=== PATIENT | female | born 1950 | race Caucasian/White ===

== ENCOUNTER 2020-06-29 16:48 | Inpatient (IN) | payer OTHER, BC ==
[2020-06-29 17:33] LABS: Absolute Lymphocytes (CBC) 0.8 K/uL (0.7-4.9); Basophils % 0.3 % (0-1.3); Hematocrit 45.9 % (36.0-45.0); Lymphocytes % 3.8 % (15.3-44.8); MPV 7.4 fL (7.6-11.3); RBC Red Blood Cell Count 5.09 M/uL (3.86-4.86)
[2020-06-29 17:37] LABS: Protime INR 1.37
[2020-06-29] MEDS ORDERED: dexAMETHasone 4 MG/ML VIAL ONE (17:44)
[2020-06-29] MEDS ORDERED: NA CHLORIDE 0.9% 500 ML ONE (17:44)
[2020-06-29 17:49] LABS: ALT/SGPT 69 U/L (12-78); AST/SGOT 55 U/L (15-37); Albumin 3.1 g/dL (3.4-5.0); Alkaline Phosphatase 142 U/L (45-117); BUN Blood Urea Nitrogen 24 mg/dL (7-18); Bicarbonate 23 mmol/L (21-32); Bilirubin Direct 0.4 mg/dL (0-0.2); Bilirubin Total 0.8 mg/dL (0.2-1.0); Glucose Level 126 mg/dL (74-106); Lipase 201 U/L (73-393); Potassium 3.6 mmol/L (3.5-5.1); Protein, Total 8.1 g/dL (6.4-8.2); Sodium Level 136 mmol/L (136-145); Troponin (Emerg Dept Use Only) < 0.02 ng/mL (0.0-0.045)
[2020-06-29 18:10] LABS: Blood Morphology Comment NOT SEEN (NOT SEEN); Platelet Estimate ADEQ
--- NOTE | 2020-06-29 18:22 | RAD REPORT ---
EXAM DESCRIPTION: RAD - Chest Single View - 06/29/2020 5:55 pm CLINICAL HISTORY: Chest pain;SOB Chest pain. COMPARISON: CHEST SINGLE VIEW dated 10/27/2010; CHEST SINGLE VIEW dated 01/30/2009; CHEST PA AND LAT 2 VIEW dated 01/26/2009; CHEST PA AND LAT 2 VIEW dated 10/11/2005 FINDINGS: Portable technique limits examination quality. Mild linear opacities in left lung base suspicious for developing pneumonia. The heart is normal in s ize. No displaced fractures.
[2020-06-29] MEDS ORDERED: Levofloxacin 750mg IV 750 MG/150 ML BAG IV ONE (18:25)
--- NOTE | 2020-06-29 19:35 | EDPHYS ---
Physician Documentation [facility] Name: Sakshi Turcios Age: 69 yrs Sex: Female : 1950 Arrival Date: 06/29/2020 Time: 16:50 Bed 8 Private MD: ED Physician Crow Washington HPI: 06/29 17:10 This 69 yrs old Female presents to ER via Wheelchair with complaints of cp Breathing Difficulty. 17:10 The patient has shortness of breath at rest. Onset: The symptoms/episode began/occurred cp yesterday, and became worse today. Duration: The symptoms are continuous, and are steadily getting worse. The patient's shortness of breath is aggravated by light activity. 17:10 Associated signs and symptoms: Pertinent positives: chest pain, non-productive cough, cp fever, fatigue. 17:10 Severity of symptoms: in the emergency department the symptoms are unchanged despite cp home interventions. Patient reports being diagnosed with COVID-19 2 weeks ago. Historical: - Allergies: 17:08 No Known Allergies; ca1 - PMHx: 17:08 Hypertension; Arthritis; ca1 - Immunization history:: Adult Immunizations up to date. - Social history:: Smoking status: Patient denies any tobacco usage or history of. ROS: 17:12 Constitutional: Positive for fatigue, Negative for fever, poor PO intake. cp 17:12 Eyes: Negative for injury, pain, redness, and discharge. cp 17:12 ENT: Negative for ear pain, difficulty swallowing, difficulty handling secretions. 17:12 Cardiovascular: Positive for chest pain, Negative for edema, palpitations. 17:12 Respiratory: Positive for cough, "sounds productive", shortness of breath, at rest. 17:12 Abdomen/GI: Negative for abdominal pain, vomiting, diarrhea, constipation. 17:12 Neuro: Negative for altered mental status, headache, syncope. 17:12 All other systems are negative. Exam: 17:12 ECG was reviewed by the Attending Physician. cp 17:15 Head/Face: Normocephalic, atraumatic. cp 17:15 Constitutional: The patient appears alert, awake, non-diaphoretic, non-toxic, well developed, well nourished, in obvious distress, mildly distressed, obviously ill, uncomfortable. 17:15 Eyes: Periorbital structures: appear normal, Conjunctiva: normal, no exudate, no injection, Lids and lashes: appear normal, bilaterally. 17:15 ENT: External ear(s): are unremarkable, Nose: is normal, Posterior pharynx: Airway: no evidence of obstruction, patent. 17:15 Neck: ROM/movement: is normal, is supple, no meningismus, no nuchal rigidity. 17:15 Chest/axilla: Inspection: normal, Palpation: is normal, no crepitus, no tenderness. 17:15 Cardiovascular: Rate: tachycardic, Rhythm: regular. 17:15 Respiratory: mild respiratory distress is noted, Respirations: labored breathing, that is mild, shallow respirations, that is mild, Breath sounds: bronchial sounds, that are moderate, are heard diffusely, stridor, is not appreciated. 17:15 Abdomen/GI: Inspection: abdomen appears normal, Palpation: abdomen is soft and non-tender, in all quadrants. 17:15 Back: pain, is absent, ROM is normal. 17:15 Neuro: Orientation: to person, place \\T\\ time. Mentation: is normal, Cerebellar function: is grossly normal, Motor: moves all fours, strength is normal. 17:15 Skin: no rash present. cp Vital Signs: 17:00 BP 161 / 97; Pulse 126; Resp 22; Temp 97.3(TE); Pulse Ox 89% on R/A; Weight 69.4 kg ca1 (R); Height 5 ft. 1 in. (154.94 cm) (R); Pain 9/10; 18:02 BP 137 / 65; Pulse 101; Resp 18; Pulse Ox 95% on 4 lpm NC; bp 19:30 BP 121 / 62; Pulse 105; Resp 19; Pulse Ox 99% on 4 lpm NC; rr5 20:30 BP 131 / 62; Pulse 96; Resp 17; Pulse Ox 98% on 4 lpm NC; rr5 21:45 BP 127 / 68; Pulse 99; Resp 18; Temp 98.5; Pulse Ox 95% 4 lpm ; rr5 17:00 Body Mass Index 28.91 (69.40 kg, 154.94 cm) ca1 MDM: 17:01 Patient medically screened. cp 17:30 Differential diagnosis: CHF exacerbation, Chronic Obstructive Pulmonary Disease cp Myocardial Infarction pneumonia, pulmonary edema, Pulmonary Embolism Unstable Angina. 18:45 Data reviewed: vital signs, nurses notes, lab test result(s), EKG, radiologic studies, cp plain films. 18:45 Test interpretation: by ED physician or midlevel provider: ECG. Physician consultation: elissa Alexander MD was called at 18:45, left message on voicemail. 19:07 Physician consultation: Lazarus Alexander MD was called at 19:07, no answer, left message on cp voicemail. 19:45 Physician consultation: Lazarus Alexander MD was called at 19:45, was contacted at 19:45, cp regarding admission, to the telemetry unit. patient's condition, would like consultation with Dr. Castaneda. 19:56 Physician consultation: Brandon Castaneda MD was contacted at 19:57, regarding consult, cp patient's condition, and will see patient in inpatient room, tomorrow, does not want steroids to be continued. Continue Levaquin IV. 20:00 Counseling: I had a detailed discussion with the patient and/or guardian regarding: the cp historical points, exam findings, and any diagnostic results supporting the discharge/admit diagnosis, lab results, radiology results, the need for further work-up and treatment in the hospital. 06/29 17:06 Order name: Basic Metabolic Panel; Complete Time: 18:01 06/29 17:06 Order name: Blood Culture Adult (2) 06/29 17:06 Order name: CBC with Diff; Complete Time: 18:26 06/29 17:41 Interpretation: Normal except: WBC 22.1; RBC 5.09; HGB 15.1; HCT 45.9; MPV 7.4; CORNELIUS% cp 92.9; LYM% 3.8; MN% 2.9; NEUT A 20.6. 06/29 17: Order name: Lactate; Complete Time: 18:01 cp 06/29 17:06 Order name: LFT's; Complete Time: 18:01 cp 06/29 17:06 Order name: Lipase; Complete Time: 18:01 06/29 17:06 Order name: Procalcitonin; Complete Time: 18:26 cp 06/29 17:06 Order name: Protime (+inr); Complete Time: 17:40 06/29 17:41 Interpretation: Abnormal: PT 16.1. 06/29 17:06 Order name: Ptt, Activated; Complete Time: 17:40 cp 06/29 17:06 Order name: Troponin (emerg Dept Use Only); Complete Time: 18:01 cp 06/29 17:06 Order name: Urine Microscopic Only; Complete Time: 19:55 cp 06/29 17:22 Order name: CRP; Complete Time: 18:26 cp 06/29 17:22 Order name: D-Dimer; Complete Time: 18:01 06/29 18:11 Order name: Manual Differential; Complete Time: 18:26 EDMS 06/29 17:06 Order name: Chest Single View XRAY; Complete Time: 18:32 cp 06/29 18:32 Interpretation: Report reviewed. 06/29 19:31 Order name: Urine Dipstick--Ancillary (enter results) [facility] 06/29 20:05 Order name: SARS-COV-2 RT PCR EDHI 06/29 20:15 Order name: Influenza Screen (a \\T\\ B) 06/29 20:16 Order name: Basic Metabolic Panel ED[facility] 06/29 20:16 Order name: Basic Metabolic Panel ED[facility] 06/29 20:16 Order name: CBC with Automated Diff EDMS 06/29 20:16 Order name: CBC with Automated Diff EDMS 06/29 20:16 Order name: NT PRO-BNP ED[facility] 06/29 20:16 Order name: NT PRO-BNP [facility] 06/29 20:16 Order name: Troponin I ED[facility] 06/29 20:16 Order name: Troponin I EDHI 06/29 20:16 Order name: Troponin I EDHI 06/29 17:06 Order name: Cardiac monitoring; Complete Time: 17:13 06/29 17:06 Order name: EKG - Nurse/Tech; Complete Time: 17:13 06/29 17:06 Order name: IV Saline Lock - Large Bore; Complete Time: 17:13 06/29 17:06 Order name: Labs collected and sent; Complete Time: 17:13 cp 06/29 17:06 Order name: O2 Per Protocol; Complete Time: 17:13 06/29 17:06 Order name: O2 Sat Monitoring; Complete Time: 17:13 cp 06/29 17:06 Order name: Urine Dipstick-Ancillary (obtain specimen); Complete Time: 17:13 06/29 17:13 Order name: Urine Dipstick-Ancillary (obtain specimen); Complete Time: 19:39 bp 06/29 20:16 Order name: Regular EDMS EC:12 Rate is 122 beats/min. Rhythm is regular. MN interval is normal. QRS interval is cp normal. QT interval is normal. Interpreted by me. Reviewed by me. Administered Medications: 17:20 Drug: Decadron - Dexamethasone 6 mg Route: IVP; Site: right forearm; bp 18:03 Follow up: Response: No adverse reaction bp 17:20 Drug: NS 0.9% 500 ml Route: IV; Rate: bolus; Site: right forearm; bp 18:03 Follow up: IV Status: Completed infusion; IV Intake: 500ml bp 18:10 Drug: LevaQUIN 750 mg Volume: 150 ml; Route: IVPB; Infused Over: 90 mins; Site: right bp forearm; 22:06 Follow up: IV Status: Completed infusion; IV Intake: 150ml rr5 Disposition: 06/30 07:15 Co-signature as Attending Physician, Crow Washington MD. rn Disposition: 06/29/20 19:34 Hospitalization ordered by Lazarus Alexander for Inpatient Admission. Preliminary diagnosis are Pneumonia due to other specified infectious organisms, Coronavirus infection, unspecified, Hypoxemia. - Bed requested for Intensive Care Unit. - Status is Inpatient Admission. rr5 - Condition is Stable. - Problem is new. - Symptoms have improved. Signatures: Dispatcher [employer] EDMS Cecilia Fry RN RN kl Nieto, Roman, MD MD rn Page, Corey, PA PA cp Torin Colon RN RN bp Stew Jordan RN RN rr5 Holly Ashley RN RN ca1 Corrections: (The following items were deleted from the chart) 06/29 17:41 17:41 Normal except: WBC 22.1; RBC 5.09; HGB 15.1; HCT 45.9; MPV 7.4; CORNELIUS% 92.9; LYM% cp 3.8; MN% 2.9. cp 19:35 19:34 Hospitalization Ordered by Lazarus Alexander MD for Inpatient Admission. Preliminary cp diagnosis is Pneumonia due to other specified infectious organisms; Coronavirus infection, unspecified. Bed requested for Telemetry/MedSurg (Inpatient). Status is Inpatient Admission. Condition is Stable. Problem is new. Symptoms have improved. cp 20:57 19:35 06/29/2020 19:34 Hospitalization Ordered by Lazarus Alexander MD for Inpatient kl Admission. Preliminary diagnosis is Pneumonia due to other specified infectious organisms; Coronavirus infection, unspecified; Hypoxemia. Bed requested for Telemetry/MedSurg (Inpatient). Status is Inpatient Admission. Condition is Stable. Problem is new. Symptoms have improved. cp 22:06 20:57 06/29/2020 19:34 Hospitalization Ordered by Lazarus Alexander MD for Inpatient rr5 Admission. Preliminary diagnosis is Pneumonia due to other specified infectious organisms; Coronavirus infection, unspecified; Hypoxemia. Bed requested for Intensive Care Unit. Status is Inpatient Admission. Condition is Stable. Problem is new. Symptoms have improved. kl
--- NOTE | 2020-06-29 19:35 | ER ---
Nurse's Notes [facility] Name: Sakshi Turcios Age: 69 yrs Sex: Female : 1950 Arrival Date: 06/29/2020 Time: 16:50 Bed 8 Private MD: Diagnosis: Pneumonia due to other specified infectious organisms;Coronavirus infection, unspecified;Hypoxemia Presentation: 06/29 17:00 Chief complaint: Patient states: COVID positive 2 weeks ago, out of quarantine 3 days ca1 ago. Started having cough and SOB since last night. Reports low grade fever, fatigue, nausea, chest pain. Coronavirus screen: Client denies travel out of the [place] in the last 14 days. cough unrelated to allergies, fatigue, fever, nausea, shortness of breath, Client presents with at least one sign or symptom that may indicate coronavirus-19. Standard/surgical mask placed on the client. Provider contacted for isolation considerations. Client reports previous positive COVID test result. Date of collection: May 2020. Ebola Screen: Patient negative for fever greater than or equal to 101.5 degrees Fahrenheit, and additional compatible Ebola Virus Disease symptoms Patient denies exposure to infectious person. Patient denies travel to an Ebola-affected area in the 21 days before illness onset. No symptoms or risks identified at this time. Initial Sepsis Screen: Does the patient meet any 2 criteria? RR > 20 per min. HR > 90 bpm. Yes Does the patient have a suspected source of infection? Yes: Productive cough/pneumonia. Risk Assessment: Do you want to hurt yourself or someone else? Patient reports no desire to harm self or others. Onset of symptoms was June 29, 2020. 17:00 Method Of Arrival: Wheelchair ca1 17:00 Acuity: OLIVIER 2 ca1 Triage Assessment: 17:00 General: Appears distressed, uncomfortable, ill, Behavior is cooperative, appropriate bp for age, anxious. Pain: Denies pain. EENT: No deficits noted. Neuro: Level of Consciousness is awake, alert, obeys commands, Oriented to person, place, time, situation, Appropriate for age. Cardiovascular: Rhythm is sinus tachycardia. Respiratory: Reports shortness of breath Breath sounds are coarse bilaterally. Onset: The symptoms/episode began/occurred yesterday, the patient has moderate shortness of breath. GI: No signs and/or symptoms were reported involving the gastrointestinal system. : No signs and/or symptoms were reported regarding the genitourinary system. Derm: No deficits noted. Musculoskeletal: No deficits noted. Historical: - Allergies: 17:08 No Known Allergies; ca1 - PMHx: 17:08 Hypertension; Arthritis; ca1 - Immunization history:: Adult Immunizations up to date. - Social history:: Smoking status: Patient denies any tobacco usage or history of. Screenin:00 Abuse screen: Denies threats or abuse. Denies injuries from another. Nutritional bp screening: No deficits noted. Tuberculosis screening: No symptoms or risk factors identified. Fall Risk None identified. Assessment: 16:57 Reassessment: CODE SEPSIS CALLED. bp 17:00 General: SEE TRIAGE NOTE. bp 18:03 Reassessment: ABX INFUSING. PT STATES SOME S/S IMPROVEMENT. Cardiovascular: Rhythm is bp sinus tachycardia Chest pain is denied. 19:00 General: Appears in no apparent distress. comfortable, Behavior is calm, cooperative, rr5 appropriate for age, Reports fever for feeling ill for fatigue for. 19:00 Pain: Complains of pain in chest. Neuro: Level of Consciousness is awake, alert, obeys rr5 commands, Oriented to person, place, time, situation. Respiratory: Reports shortness of breath cough that is Airway is patent Respiratory effort is even, unlabored, Respiratory pattern is regular, symmetrical. GI: Reports nausea, vomiting. : No signs and/or symptoms were reported regarding the genitourinary system. EENT: No signs and/or symptoms were reported regarding the EENT system. Derm: Skin is intact, is fragile, is thin, Skin temperature is warm. Musculoskeletal: Capillary refill < 3 seconds. 20:00 Reassessment: Patient appears in no apparent distress at this time. Patient is alert, rr5 oriented x 3, equal unlabored respirations, skin warm/dry/pink. 21:00 Reassessment: Patient appears in no apparent distress at this time. Patient and/or rr5 family updated on plan of care and expected duration. Pain level reassessed. Patient is alert, oriented x 3, equal unlabored respirations, skin warm/dry/pink. awaiting for room assignment. 22:00 Reassessment: Patient appears in no apparent distress at this time. Patient is alert, rr5 oriented x 3, equal unlabored respirations, skin warm/dry/pink. for transfer to ICU 3. Vital Signs: 17:00 BP 161 / 97; Pulse 126; Resp 22; Temp 97.3(TE); Pulse Ox 89% on R/A; Weight 69.4 kg ca1 (R); Height 5 ft. 1 in. (154.94 cm) (R); Pain 9/10; 18:02 BP 137 / 65; Pulse 101; Resp 18; Pulse Ox 95% on 4 lpm NC; bp 19:30 BP 121 / 62; Pulse 105; Resp 19; Pulse Ox 99% on 4 lpm NC; rr5 20:30 BP 131 / 62; Pulse 96; Resp 17; Pulse Ox 98% on 4 lpm NC; rr5 21:45 BP 127 / 68; Pulse 99; Resp 18; Temp 98.5; Pulse Ox 95% 4 lpm ; rr5 17:00 Body Mass Index 28.91 (69.40 kg, 154.94 cm) ca1 ED Course: 16:50 Patient arrived in ED. ag5 16:53 Santana Xavier PA is PHCP. cp 16:53 Crow Washington MD is Attending Physician. cp 16:59 Torin Colon, LORY is Primary Nurse. bp 17:00 Patient has correct armband on for positive identification. Bed in low position. Call bp light in reach. Side rails up X2. Adult w/ patient. 17:07 Triage completed. ca1 17:08 Arm band placed on right wrist. ca1 17:10 Inserted saline lock: 20 gauge in right forearm, using aseptic technique. Blood bp collected. 17:56 Chest Single View XRAY In Process Unspecified. EDMS 19:27 Urine collected: clean catch specimen, clear. ar5 19:33 Lazarus Alexander MD is Hospitalizing Provider. cp 20:29 Flu and/or RSV swab sent to lab. ar5 21:00 Repeat lab(s) drawn. by nv, sent to lab. rr5 21:53 No provider procedures requiring assistance completed. Patient admitted, IV remains in rr5 place. intact, No redness/swelling at site. Administered Medications: 17:20 Drug: Decadron - Dexamethasone 6 mg Route: IVP; Site: right forearm; bp 18:03 Follow up: Response: No adverse reaction bp 17:20 Drug: NS 0.9% 500 ml Route: IV; Rate: bolus; Site: right forearm; bp 18:03 Follow up: IV Status: Completed infusion; IV Intake: 500ml bp 18:10 Drug: LevaQUIN 750 mg Volume: 150 ml; Route: IVPB; Infused Over: 90 mins; Site: right bp forearm; 22:06 Follow up: IV Status: Completed infusion; IV Intake: 150ml rr5 Intake: 18:03 IV: 500ml; Total: 500ml. bp 22:06 IV: 150ml; Total: 650ml. rr5 Outcome: 19:34 Decision to Hospitalize by Provider. cp 21:53 Admitted to ICU accompanied by tech, via stretcher, room 3, with oxygen, with chart, rr5 Report called to mehdi 21:53 Condition: stable 21:53 Instructed on the need for admit. 22:06 Patient left the ED. rr5 Signatures: Dispatcher [employer] EDMS Santana Xavier PA PA cp Peltier, Brian, RN RN bp Roque, Raymond, RN RN rr5 Valerie Castorena ar5 Holly Ashley RN RN ca1 Trent Roberts ag5 Corrections: (The following items were deleted from the chart) 18:03 18:02 BP 137 / 65; Pulse 101bpm; Resp 18bpm; Pulse Ox 95% 2 lpm Nasal Cannula; bp bp
[2020-06-29 19:53] LABS: Urine Bacteria <20 /HPF (<20); Urine RBC <5 /HPF (NONE SEEN)
[2020-06-29 19:54] LABS: Urine Culture Reflex Order NOT NEEDED
[2020-06-29] MEDS ORDERED: ONDANSETRON 4 MG/2 ML VIAL IV PRN (20:13)
[2020-06-29] MEDS ORDERED: ACETAMINOPHEN 500 MG TAB PO PRN (20:13)
[2020-06-29 21:20] LABS: Urine Blood TRACE (NEG); Urine Glucose NEGATIVE (NEG); Urine Protein 2+ (NEG); Urine Specific Gravity 1.025 (1.005-1.030)
[2020-06-29] MEDS: BENZONATATE 100 MG CAP PO PRN (23:15)
[2020-06-29] MEDS: ZOLPIDEM TARTRATE 5 MG TABLET PO PRN (23:15)
[2020-06-30] MEDS: BENZONATATE 100 MG CAP PO PRN ×2 (04:15→09:46)
[2020-06-30 05:37] LABS: Absolute Lymphocytes (CBC) 0.5 K/uL (0.7-4.9); Basophils % 0.1 % (0-1.3); Hematocrit 41.1 % (36.0-45.0); Lymphocytes % 2.4 % (15.3-44.8); MPV 7.5 fL (7.6-11.3); RBC Red Blood Cell Count 4.57 M/uL (3.86-4.86)
[2020-06-30 05:53] LABS: Ferritin 251.5 ng/mL (8-388); Potassium 4.4 mmol/L (3.5-5.1)
[2020-06-30] MEDS: VERAPAMIL SR 240 MG TABLET PO SCH (08:53)
[2020-06-30] MEDS: ESCITALOPRAM 20 MG TAB PO SCH (08:53)
[2020-06-30] MEDS: SPIRONOLACTONE 25 MG TABLET PO SCH (08:54)
[2020-06-30] MEDS: hydroCHLOROthiazide 25 MG TAB PO SCH (08:54)
[2020-06-30] MEDS ORDERED: INFLUENZA VACCINE (for 3y+) 0.5 ML DOSE IMVAC ONE (09:00)
[2020-06-30] MEDS: METHYLPREDNISOLONE 125 MG INJ IV SCH ×2 (09:00→20:01)
[2020-06-30] MEDS ORDERED: ATORVASTATIN 10 MG TAB PO SCH (09:00)
[2020-06-30] MEDS ORDERED: METHYLPREDNISOLONE 125 MG INJ IV SCH (09:00)
[2020-06-30] MEDS ORDERED: METHYLPREDNISOLONE 40 MG INJ ONE (09:08)
[2020-06-30] MEDS: levoFLOXacin 500 MG TAB PO SCH (09:19)
--- NOTE | 2020-06-30 12:00 | P.CNS ---
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 Complaint: Shortness of breath and cough History of Present Illness: Patient is 69 years of age was diagnosed with a galaviz virus infection 2 weeks ago and was started on Decadron came to the emergency room complaining of worsening shortness of breath cough low-grade fever she was hypoxic patient has significant Chantelle coughing spells is currently on high-flow oxygen 40% Allergies codeine Adverse Reaction (Verified 11/05/17 08:45) Nausea/Vomiting hydrocodone Adverse Reaction (Verified 06/29/20 23:54) Nausea/Vomiting Home Medications: Escitalopram [Lexapro] 20 mg PO DAILY 11/05/17 Pravastatin Sodium 40 mg PO DAILY 11/05/17 Spironolact/Hydrochlorothiazid [Spironolactone-Hctz 25-25 Tab] 1 tab PO DAILY 11/05/17 Verapamil HCl [Verapamil ER] 240 mg PO DAILY 11/05/17 Tizanidine HCl 4 mg PO DAILY 06/30/20 - Past Medical/Surgical History Diabetic: No -: HTN , Arthritis -: cholecystectomy -: hysterectomy -: knee surgery - Family History Father Medical History: Heart disease, Stroke, Cancer Mother Medical History: Heart disease, Stroke, Cancer Brother Medical History: Hypertension, Diabetes, Cancer Sister Medical History: Hypertension, Diabetes - Social History Alcohol use: No CD- Drugs: No Caffeine use: Yes Place of Residence: Home Review of Systems Respiratory: Cough, Shortness of Breath Physical Examination Temp Pulse Resp BP Pulse Ox 99.1 F 82 23 H 117/59 L 91 06/30/20 08:00 06/30/20 08:00 06/30/20 08:00 06/30/20 08:00 06/30/20 08:00 Laboratory Data (last 24 hrs) 06/29/20 17:13: PT 16.1 H, INR 1.37, APTT 34.5 06/29/20 17:13: WBC 22.1 H*, Hgb 15.1 H, Hct 45.9 H, Plt Count 319 06/29/20 17:13: Sodium 136, Potassium 3.6, BUN 24 H, Creatinine 1.15, Glucose 126 H, Total Bilirubin 0.8, AST 55 H, ALT 69, Alkaline Phosphatase 142 H, Lipase 201 - Problems (1) Acute hypoxemic respiratory failure due to severe acute respiratory syndrome coronavirus 2 (SARS-CoV-2) disease Current Visit: Yes Status: Acute Plan: Patient is 69 years of age diagnosed with a coronal virus infection 2 weeks ago admitted with worsening shortness of breath and cough I have added Solu-Medrol labs reviewed white count is elevated multi vitamin supplementation full anticoagulation nebulize bronchodilators minimal changes on the x-ray continue to follow CRP white count elevated at levofloxacin
[2020-06-30] MEDS: TIZANIDINE 4 MG TABLET PO SCH (13:05)
[2020-06-30] MEDS: APIXABAN 5 MG TABLET PO SCH ×2 (13:06→20:01)
[2020-06-30] MEDS: THIAMINE HCL 100 MG TABLET PO SCH (13:06)
--- NOTE | 2020-06-30 17:41 | P.HP ---
Certification for Inpatient With expected LOS: >2 Midnights Practitioner: I am a practitioner with admitting privileges, knowledge of patient current condition, hospital course, and medical plan of care. Services: Services provided to patient in accordance with Admission requirements found in Title 42 Section 412.3 of the Code of Federal Regulations Patient History Date of Service: 06/30/20 Reason for admission: Shortness of breath and cough History of Present Illness: RAMOS HAS BEEN DIAGNOSED WITH COVID INFECTION ON OF LAST MONTH. I GAVE HER DEXAMETHASONE 6 MG DAILY, XARELTO DAILY AND SUPPLEMENTS. SHE ENDS UP HERE WITH DYSPNEA AND COUGH. SHE IS HYPOXIC AND KEPT ON HF OXYGEN WITH OTHER MEDS IN ICU. SHE IS SEEN BY DR CARLISLE. Allergies codeine Adverse Reaction (Verified 11/05/17 08:45) Nausea/Vomiting hydrocodone Adverse Reaction (Verified 06/29/20 23:54) Nausea/Vomiting Home Medications: Escitalopram [Lexapro] 20 mg PO DAILY 11/05/17 Pravastatin Sodium 40 mg PO DAILY 11/05/17 Spironolact/Hydrochlorothiazid [Spironolactone-Hctz 25-25 Tab] 1 tab PO DAILY 11/05/17 Verapamil HCl [Verapamil ER] 240 mg PO DAILY 11/05/17 Tizanidine HCl 4 mg PO DAILY 06/30/20 - Past Medical/Surgical History Has patient received pneumonia vaccine in the past: Yes Diabetic: No -: HTN , Arthritis -: cholecystectomy -: hysterectomy -: knee surgery - Family History Father -: Heart disease, Stroke, Cancer Mother -: Heart disease, Stroke, Cancer Brother -: Hypertension, Diabetes, Cancer Sister -: Hypertension, Diabetes - Social History Smoking Status: Never smoker Alcohol use: No CD- Drugs: No Caffeine use: Yes Place of Residence: Home Review of Systems 10-point ROS is otherwise unremarkable General: Weakness, Malaise Respiratory: Cough, Shortness of Breath Physical Examination - Vital Signs Temperature: 96.7 F Blood Pressure: 100/63 Pulse: 59 Respirations: 24 Pulse Ox (%): 93 - Physical Exam General: Mild distress, Moderate distress - Studies Laboratory Data (last 24 hrs) 06/29/20 17:13: PT 16.1 H, INR 1.37, APTT 34.5 06/29/20 17:13: WBC 22.1 H*, Hgb 15.1 H, Hct 45.9 H, Plt Count 319 06/29/20 17:13: Sodium 136, Potassium 3.6, BUN 24 H, Creatinine 1.15, Glucose 126 H, Total Bilirubin 0.8, AST 55 H, ALT 69, Alkaline Phosphatase 142 H, Lipase 201 Assessment and Plan - Problems (Diagnosis) (1) Pneumonia due to COVID-19 virus Current Visit: Yes Status: Acute Plan: IV STEROIDS XARELTO PO. LEVAQUIN GIVEN WBC WAS HIGH BUT THIS CAN BE HIGH FROM BEING ON DEXAMETHASONE. DR. CARLISLE CONSULTED. (2) Acute hypoxemic respiratory failure due to severe acute respiratory syndrome coronavirus 2 (SARS-CoV-2) disease Current Visit: Yes Status: Acute - Advance Directives Does patient have a Living Will: No Does patient have a Durable POA for Healthcare: No
[2020-06-30] MEDS: ATORVASTATIN 40 MG TAB PO SCH (20:01)
[2020-06-30] MEDS: MELATONIN 3 MG TABLET PO SCH (20:01)
--- OUTSIDE RECORDS SUMMARY | 2020-06-30 22:11 | XMS REPORT | Summary of Care ---
:1950 Author Organization [facility] - [facility] Address [address] [place] [address] Care Team Providers Name Role Phone Lazarus Alexander Primary Care Provider Reason for Visit Reason Comments LAB covid Encounter Details Date Type Department Care Team Description 06/20/2020 Laboratory Only [facility] Family Jolly Mccracken, SENIOR ACCOUNTING SPECIALIST [address] [phone] Exposure to Covid-19 [facility] - [facility], [facility] Fam Pob I Virus (Primary Dx) [address] [place] [address] Allergies Active Allergy Reactions Severity Noted Date Comments Codeine Nausea and/or Vomiting 08/08/2016 Morphine Nausea and/or Vomiting 08/08/2016 documented as of this encounter (statuses as of 06/20/2020) Medications Medication Sig Dispensed Refills Start Date End Date Status pravastatin (PRAVACHOL) 0 07/30/2016 Active 40 mg tablet escitalopram oxalate 0 07/30/2016 Active (LEXAPRO) 20 mg tablet tiZANidine (ZANAFLEX) 4 0 07/30/2016 Active mg tablet esomeprazole (NEXIUM) 40 0 07/05/2016 Active mg capsule verapamil (VERELAN PM) 0 07/03/2016 Active 240 mg 24 hr capsule spironolactone 0 06/26/2016 Acti ve (ALDACTONE) 50 mg tablet traMADOL (ULTRAM) 50 mg Take 1 tablet by 20 tablet 0 6 Active tablet mouth every 6 (six) hours as needed for Pain (scale 4-6) or Pain (scale 7-10). proMETHazine (PHENERGAN) 0 08/22/2016 Active 25 mg tablet pentazocine-naloxone TK 1 OR 2 TS PO 1 08/22/2016 Active (TALWIN NX) 50-0.5 mg Q 6 H PRN P. tablet MAY CAUSE DROWSINESS. documented as of this encounter (statuses as of 06/20/2020) Active Problems Problem Noted Date Pain from implanted hardware 08/09/2016 Left knee pain 08/08/2016 documented as of this encounter (statuses as of 06/20/2020) Social History Tobacco Use Types Packs/Day Years Used Date Never Smoker Smokeless Tobacco: Never Used Alcohol Use Drinks/Week oz/Week Comments No 0 Standard drinks or equivalent 0.0 Sex Assigned at Date Recorded Not on file COVID-19 Exposure Response Date Recorded In the last month, have you been in contact with No / Unsure 06/20/2020 4:14 PM CDT someone who was confirmed or suspected to have Coronavirus / COVID-19? documented as of this encounter Last Filed Vital Signs Not on filedocumented in this encounter Nursing Notes Diane Corona RN - 06/20/2020 4:40 PM CDTCcamille Turcios is a 69 year old female here for COVID Screening with a Nasopharyngeal Swab All droplet and contact precautions taken with appropriate PPE worn while interacting with patient. ? Goggles ? N95 Mask ? Gloves ? Gown RR 18 Pulse Ox 98% Patient educated on plan of care for visit, swabbing technique, risks and benefits of test and length of time to receive results. Verbal consent obtained to perform test. CDC Fact Sheet for Patients nCoV Diagnostic Panel dated 12/06/2019 and Factsheet What to Do if Sick with COVID 19 11/16/19 provided. Patient swabbed per appropriate nasopharyngeal technique, and patient tolerated well. Patient was discharged from the testing clinic in stable condition. Diane Corona RN 06/20/2020 4:14 PM documented in this encounter Plan of Treatment Name Type Priority Associated Diagnoses Order S chedule COVID-19 (PCR MOLECULAR LAB Routine Exposure to Covid -19 Expected: 06/20/2020, TESTING) Virus Expires: 2020 Health Maintenance Due Date Last Done Comments HEPATITIS C (HCV) SCREEN 1950 Depression Screening 1962 DTaP,Tdap,and Td Vaccines (1 - Tdap) 12/07/1970 Breast Cancer Screening (MAMMOGRAM) 1991 COLON CANCER SCREENING ANNUAL FIT/FOBT 12/07/2001 COLON CANCER SCREENING FIT DNA EVERY 3 YEARS 12/07/2001 COLON CANCER SCREENING SIGMOIDOSCOPY EVERY 5 YEARS 12/07/2001 COLONOSCOPY 12/07/2001 Colorectal Cancer Screening 12/07/2001 Zoster Recombinant Vaccine (SHINGRIX) (1 of 2) 12/07/2001 Medicare Wellness Visit 12/07/2016 Osteoporosis Screening 12/07/2016 PNEUMOCOCCAL VACCINES 65+ (1 of 1 - PPSV23) 12/07/2016 INFLUENZA VACCINE (#1) 2020 documented as of this encounter Results Not on filedocumented in this encounter Visit Diagnoses Diagnosis Exposure to COVID-19 virus - Primary documented in this encounter Additional Health Concerns Infection Onset Date Last Indicated Resolved Time COVID-19 Rule Out 06/20/2020 06/20/2020 documented as of this encounter Insurance Payer Benefit Plan Subscriber ID Effective Phone Address Typ e / Group Dates MEDICARE MEDICARE PART [id number] 2016-Beniat [phone] [address] Medicare A & B nt 82 [id number] [place] [phone] [facility] [id number] 2015-Benita [phone] [address] PPO/POS nt [id number] [place] [address] documented as of this encounter
--- OUTSIDE RECORDS SUMMARY | 2020-06-30 22:11 | XMS REPORT | Continuity of Care Document ---
:1950 Author Organization [facility] t Address [address] [place] [address] Dr. Marie. [address] [place] [address] Support Name Relationship Address Phone Karolina Spouse [id number] [place] [address] Benjamín Child Unavailable Care Team Providers Name Role Phone Catherine CHINO Primary Care Physician Lab, Fam Pob I Attending Clinician Unavailable Problems This patient has no known problems. Allergies, Adverse Reactions, Alerts This patient has no known allergies or adverse reactions. Social History Social Habit Start Date Stop Date Quantity Comments Source Sex Assigned At [facility] [facility] Medications This patient has no known medications. Procedures This patient has no known procedures. Plan of Care Planned Activity Planned Date Details Comments Source Future Scheduled 2020-04-23 INFLUENZA VACCINE [facility] Test 00:00:00 [code = INFLUENZA VACCINE] Future Scheduled 2016-12-07 65+ PNEUMOCOCCAL [place] [facility] Test 00:00:00 VACCINE (1 of 1 - PPSV23) [code = 65+ PNEUMOCOCCAL VACCINE (1 of 1 - PPSV23)] Future Scheduled 2001-12-07 BREAST CANCER [facility]odist Test 00:00:00 SCREENING [code = BREAST CANCER SCREENING] Future Scheduled 2001-12-07 COLONOSCOPY SCREENING [facility] Test 00:00:00 [code = COLONOSCOPY SCREENING] Future Scheduled 2001-12-07 SHINGLES VACCINES (#1) [facility] [place] [facility] Test 00:00:00 [code = SHINGLES VACCINES (#1)] Encounters Start End Encounter Admission Attending Care Care Encounter Source Date/Time Date/Time Type Type Clinicians Facility Department ID 2020-06-20 2020-06-20 Laboratory Lab, [facility] [id number] 16:10:33 16:30:33 Only Fam P[facility] I Health [id number] [place] [phone] [place] [address] [address] Results This patient has no known results.
--- OUTSIDE RECORDS SUMMARY | 2020-06-30 22:11 | XMS REPORT | Clinical Summary ---
:1950 Author Organization [facility] Address [address] [place] [address] Care Team Providers Name Role Phone Lazarus Alexander MD Primary Care Provider Allergies Not on File Medications Not on file Active Problems Not on file Social History Tobacco Use Types Packs/Day Years Used Date Never Assessed Sex Assigned at Date Recorded Not on file Last Filed Vital Signs Not on file Plan of Treatment Health Maintenance Due Date Last Done Comments BREAST CANCER SCREENING 12/07/2001 COLONOSCOPY SCREENING 12/07/2001 SHINGLES VACCINES (#1) 12/07/2001 65+ PNEUMOCOCCAL VACCINE ( of - PPSV23) 12/07/2016 INFLUENZA VACCINE 04/23/2020 Results Not on fileafter 06/29/2019 Insurance Payer Benefit Plan / Subscriber ID Effective Dates Phone Addre ss Type Group MEDICARE MEDICARE PART A [id number] 2016-Present [place] Medicare AND B BCBS BCBS CHOICE [id number] 2017-Present PPO PPO/FEDERAL EMPL PPO Advance Directives For more information, please contact: [phone] Type Date Recorded 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
[2020-07-01] MEDS: BENZONATATE 100 MG CAP PO PRN ×4 (01:53→20:10)
[2020-07-01] MEDS: METHYLPREDNISOLONE 125 MG INJ IV SCH ×2 (08:17→20:09)
[2020-07-01] MEDS: SPIRONOLACTONE 25 MG TABLET PO SCH (08:17)
[2020-07-01] MEDS: VERAPAMIL SR 240 MG TABLET PO SCH (08:18)
[2020-07-01] MEDS: THIAMINE HCL 100 MG TABLET PO SCH (08:18)
[2020-07-01] MEDS: ESCITALOPRAM 20 MG TAB PO SCH (08:18)
[2020-07-01] MEDS: APIXABAN 5 MG TABLET PO SCH ×2 (08:20→20:10)
[2020-07-01] MEDS: levoFLOXacin 500 MG TAB PO SCH (08:20)
[2020-07-01] MEDS: VITAMIN D 1000 UNIT TAB PO SCH (08:20)
--- NOTE | 2020-07-01 08:36 | RAD REPORT ---
EXAM DESCRIPTION: RAD - Chest Single View - 07/01/2020 5:42 am CLINICAL HISTORY: Pneumonia Chest pain. COMPARISON: Chest Single View dated 06/29/2020; CHEST SINGLE VIEW dated 10/27/2010; CHEST SINGLE VIEW d ated 01/30/2009; CHEST PA AND LAT 2 VIEW dated 01/26/2009 FINDINGS: Portable technique limits examination quality. The infiltrate/pneumonia in the left lung base has moderately worsened since comparative study. The h eart is normal in size. No displaced fractures. IMPRESSION: Moderate worsening of left lower lobe pneumonia/infiltrate since comparative study.
[2020-07-01] MEDS: hydroCHLOROthiazide 25 MG TAB PO SCH (09:00)
--- NOTE | 2020-07-01 10:15 | P.PN ---
Subjective Date of Service: 07/01/20 Chief Complaint: Respiratory failure from galaviz virus Subjective: Improving (Patient is improving still little short of breath requiring high concentrations of oxygen) Review of Systems General: Weakness Respiratory: Cough, Shortness of Breath Physical Examination - Vital Signs Temperature: 97.7 F Blood Pressure: 128/62 Pulse: 79 Respirations: 18 Pulse Ox (%): 87 - Physical Exam General: Alert, Oriented x3 Respiratory: Clear to auscultation bilaterally Cardiovascular: No edema, Regular rate/rhythm Assessment & Plan - Problems (Diagnosis) (1) Acute hypoxemic respiratory failure due to severe acute respiratory syndrome coronavirus 2 (SARS-CoV-2) disease Current Visit: Yes Status: Acute Plan: Patient is 69 years of age admitted with ARDS from galaviz virus infection steadily improving CRP is declining still has desaturation vital signs stable white count is declining continue with p.o. levofloxacin Dc hydrochlorothiazide blood pressure is low
[2020-07-01] MEDS ORDERED: Levofloxacin500mg IV 500 MG/100 ML BAG IV SCH (18:00)
[2020-07-01] MEDS: TIZANIDINE 4 MG TABLET PO SCH (18:29)
[2020-07-01] MEDS: ATORVASTATIN 40 MG TAB PO SCH (20:10)
[2020-07-01] MEDS: MELATONIN 3 MG TABLET PO SCH (20:14)
--- NOTE | 2020-07-01 21:39 | P.PN ---
Subjective Date of Service: 07/01/20 Chief Complaint: Respiratory failure from galaviz virus Subjective: Improving SHE SAYS SHE IS SOME BETTER TODAY. SHE IS ON HF OXYGEN AT 30 LT NC. Review of Systems 10-point ROS is otherwise unremarkable General: Weakness, Malaise Physical Examination - Vital Signs Temperature: 98.3 F Blood Pressure: 145/81 Pulse: 59 Respirations: 20 Pulse Ox (%): 93 Assessment And Plan - Current Problems (Diagnosis) (1) Pneumonia due to COVID-19 virus Current Visit: Yes Status: Acute Plan: IV STEROIDS XARELTO PO. LEVAQUIN GIVEN WBC WAS HIGH BUT THIS CAN BE HIGH FROM BEING ON DEXAMETHASONE. DR. CARLISLE CONSULTED. DAILY LAB ADDED. RESUME STEORIDS, AC ETC. (2) Acute hypoxemic respiratory failure due to severe acute respiratory syndrome coronavirus 2 (SARS-CoV-2) disease Current Visit: Yes Status: Acute
[2020-07-01] MEDS: ZOLPIDEM TARTRATE 5 MG TABLET PO PRN (23:04)
[2020-07-02 04:56] LABS: Absolute Lymphocytes (CBC) 0.4 K/uL (0.7-4.9); Basophils % 0.3 % (0-1.3); Hematocrit 37.5 % (36.0-45.0); Lymphocytes % 2.4 % (15.3-44.8); MPV 7.6 fL (7.6-11.3); RBC Red Blood Cell Count 4.25 M/uL (3.86-4.86)
[2020-07-02 05:20] LABS: C-Reactive Protein 71.6 mg/L (<3.00); Potassium 3.8 mmol/L (3.5-5.1)
[2020-07-02 05:32] VITALS: BMI 28.4
[2020-07-02] MEDS: METHYLPREDNISOLONE 125 MG INJ IV SCH ×2 (07:58→20:06)
[2020-07-02] MEDS: VITAMIN D 1000 UNIT TAB PO SCH (07:59)
[2020-07-02] MEDS: ESCITALOPRAM 20 MG TAB PO SCH (08:00)
[2020-07-02] MEDS: APIXABAN 5 MG TABLET PO SCH ×2 (08:00→20:06)
[2020-07-02] MEDS: THIAMINE HCL 100 MG TABLET PO SCH (08:00)
[2020-07-02] MEDS: levoFLOXacin 500 MG TAB PO SCH (08:00)
[2020-07-02] MEDS: SPIRONOLACTONE 25 MG TABLET PO SCH (08:07)
[2020-07-02] MEDS: VERAPAMIL SR 240 MG TABLET PO SCH (08:07)
[2020-07-02] MEDS: BENZONATATE 100 MG CAP PO PRN ×2 (08:13→16:58)
[2020-07-02] MEDS: TIZANIDINE 4 MG TABLET PO SCH (09:20)
[2020-07-02] MEDS: DULERA 200/5 (MOMETASONE/FORMOTEROL) INHALER IH SCH ×2 (12:38→20:07)
--- NOTE | 2020-07-02 14:03 | P.PN ---
Subjective Date of Service: 07/02/20 Chief Complaint: Respiratory failure from galaviz virus Subjective: Improving SHE SAYS SHE IS SOME BETTER TODAY. SHE IS ON HF OXYGEN AT 30 LT NC. SHE FEELS BETTER. DYSPNEA AT REST. Physical Examination - Vital Signs Temperature: 98.0 F Blood Pressure: 114/58 Pulse: 61 Respirations: 18 Pulse Ox (%): 93 Assessment And Plan - Current Problems (Diagnosis) (1) Pneumonia due to COVID-19 virus Current Visit: Yes Status: Acute Plan: IV STEROIDS XARELTO PO. LEVAQUIN GIVEN WBC WAS HIGH BUT THIS CAN BE HIGH FROM BEING ON DEXAMETHASONE. DR. CARLISLE CONSULTED. DAILY LAB ADDED. RESUME STEORIDS, AC ETC. WBC IS LOWER. CRP IS LOWER. CONT CURRENT MEDS. (2) Acute hypoxemic respiratory failure due to severe acute respiratory syndrome coronavirus 2 (SARS-CoV-2) disease Current Visit: Yes Status: Acute
[2020-07-02] MEDS: MELATONIN 3 MG TABLET PO SCH (20:06)
[2020-07-02] MEDS: ATORVASTATIN 40 MG TAB PO SCH (20:06)
[2020-07-02] MEDS: IPRATROPIUM BROM 0.5MG/2.5ML NEB SCH (20:50)
[2020-07-03] MEDS: BENZONATATE 100 MG CAP PO PRN ×2 (00:23→07:58)
[2020-07-03] MEDS: ZOLPIDEM TARTRATE 5 MG TABLET PO PRN (00:23)
[2020-07-03 05:55] LABS: Absolute Lymphocytes (CBC) 0.4 K/uL (0.7-4.9); Hematocrit 38.3 % (36.0-45.0); Lymphocytes % 2.4 % (15.3-44.8); MPV 7.4 fL (7.6-11.3); RBC Red Blood Cell Count 4.33 M/uL (3.86-4.86)
[2020-07-03 06:25] LABS: C-Reactive Protein 36.7 mg/L (<3.00)
[2020-07-03 07:17] LABS: Blood Morphology Comment NOT SEEN (NOT SEEN); Platelet Estimate ADEQ
[2020-07-03] MEDS: TIZANIDINE 4 MG TABLET PO SCH ×2 (07:56→08:11)
[2020-07-03] MEDS: THIAMINE HCL 100 MG TABLET PO SCH (07:57)
[2020-07-03] MEDS: SPIRONOLACTONE 25 MG TABLET PO SCH (07:57)
[2020-07-03] MEDS: APIXABAN 5 MG TABLET PO SCH ×2 (07:57→20:14)
[2020-07-03] MEDS: levoFLOXacin 500 MG TAB PO SCH (07:57)
[2020-07-03] MEDS: ESCITALOPRAM 20 MG TAB PO SCH (07:57)
[2020-07-03] MEDS: VERAPAMIL SR 240 MG TABLET PO SCH (07:58)
[2020-07-03] MEDS: DULERA 200/5 (MOMETASONE/FORMOTEROL) INHALER IH SCH ×2 (07:58→20:14)
[2020-07-03] MEDS: METHYLPREDNISOLONE 125 MG INJ IV SCH (07:58)
[2020-07-03] MEDS: VITAMIN D 1000 UNIT TAB PO SCH (08:00)
[2020-07-03] MEDS: IPRATROPIUM BROM 0.5MG/2.5ML NEB SCH ×2 (08:45→21:00)
--- NOTE | 2020-07-03 09:44 | P.PN ---
Subjective Date of Service: 07/03/20 Chief Complaint: Respiratory failure from galaviz virus Subjective: Improving (Patient is steadily improving no new complaints plan to wean her oxygen down CRP is declining) Review of Systems General: Weakness Respiratory: Shortness of Breath Physical Examination - Vital Signs Temperature: 98.2 F Blood Pressure: 127/59 Pulse: 56 Respirations: 20 Pulse Ox (%): 93 - Physical Exam General: Alert, Oriented x3, Mild distress Assessment & Plan - Problems (Diagnosis) (1) Acute hypoxemic respiratory failure due to severe acute respiratory syndrome coronavirus 2 (SARS-CoV-2) disease Current Visit: Yes Status: Acute Plan: Patient is improving plan to continue weaned on on oxygen 1 she is on 4 L plan to discharge labs reviewed white count declining patient complains of coughing is on Tessalon Perles allergic to codeine added Akira
--- NOTE | 2020-07-03 09:45 | P.PN ---
Subjective Date of Service: 07/03/20 Chief Complaint: Respiratory failure from galaviz virus Subjective: Improving (Patient is doing better still has desaturation on mild exertion no the complaining) Review of Systems General: Weakness Respiratory: Shortness of Breath Physical Examination - Vital Signs Temperature: 98.2 F Blood Pressure: 127/59 Pulse: 56 Respirations: 20 Pulse Ox (%): 93 - Physical Exam General: Alert Respiratory: Clear to auscultation bilaterally Assessment & Plan - Problems (Diagnosis) (1) Acute hypoxemic respiratory failure due to severe acute respiratory syndrome coronavirus 2 (SARS-CoV-2) disease Current Visit: Yes Status: Acute Plan: Patient is doing better now on 5 L nasal cannula sats are over 90% to discharge tomorrow prednisone 20 b.i.d. for a week then 10 b.i.d. for a week white count is decreased to 15.4 vital signs stable intolerant to inhaled bronchodilators
--- NOTE | 2020-07-03 16:32 | P.PN ---
Subjective Date of Service: 07/03/20 Chief Complaint: Respiratory failure from galaviz virus Subjective: Improving SHE SAYS SHE IS SOME BETTER TODAY. SHE IS ON HF OXYGEN AT 30 LT NC. SHE FEELS BETTER. DYSPNEA AT REST. SHE IS STRONGER EVERY DAY. DENIES ANY CHEST PAIN. Review of Systems 10-point ROS is otherwise unremarkable Physical Examination - Vital Signs Temperature: 98.4 F Blood Pressure: 131/70 Pulse: 67 Respirations: 20 Pulse Ox (%): 92 Assessment And Plan - Current Problems (Diagnosis) (1) Pneumonia due to COVID-19 virus Current Visit: Yes Status: Acute Plan: IV STEROIDS XARELTO PO. LEVAQUIN GIVEN WBC WAS HIGH BUT THIS CAN BE HIGH FROM BEING ON DEXAMETHASONE. DR. CARLISLE CONSULTED. DAILY LAB ADDED. RESUME STEORIDS, AC ETC. WBC IS LOWER. CRP IS LOWER. CONT CURRENT MEDS. OXYGEN DOWN TO 5 LT NC. SHE IS IN GOOD SPIRITS. WBC IS LOWER. WILL DC IN AM IF OKAY. (2) Acute hypoxemic respiratory failure due to severe acute respiratory syndrome coronavirus 2 (SARS-CoV-2) disease Current Visit: Yes Status: Acute
[2020-07-03] MEDS: MELATONIN 3 MG TABLET PO SCH (20:13)
[2020-07-03] MEDS: ATORVASTATIN 40 MG TAB PO SCH (20:13)
[2020-07-03] MEDS: predniSONE 20 MG TAB PO SCH (20:14)
[2020-07-04] MEDS: BENZONATATE 100 MG CAP PO PRN (00:13)
[2020-07-04] MEDS: ZOLPIDEM TARTRATE 5 MG TABLET PO PRN (00:13)
[2020-07-04 05:12] LABS: Absolute Lymphocytes (CBC) 0.4 K/uL (0.7-4.9); Basophils % 0.1 % (0-1.3); Hematocrit 37.6 % (36.0-45.0); Lymphocytes % 2.9 % (15.3-44.8); MPV 7.5 fL (7.6-11.3); RBC Red Blood Cell Count 4.22 M/uL (3.86-4.86)
[2020-07-04 05:22] LABS: C-Reactive Protein 19.2 mg/L (<3.00); Potassium 4.2 mmol/L (3.5-5.1)
[2020-07-04] MEDS: IPRATROPIUM BROM 0.5MG/2.5ML NEB SCH (07:55)
[2020-07-04] MEDS: predniSONE 20 MG TAB PO SCH (08:02)
[2020-07-04] MEDS: VERAPAMIL SR 240 MG TABLET PO SCH (08:02)
[2020-07-04] MEDS: VITAMIN D 1000 UNIT TAB PO SCH (08:02)
[2020-07-04] MEDS: ESCITALOPRAM 20 MG TAB PO SCH (08:02)
[2020-07-04] MEDS: SPIRONOLACTONE 25 MG TABLET PO SCH (08:02)
[2020-07-04] MEDS: APIXABAN 5 MG TABLET PO SCH (08:02)
[2020-07-04] MEDS: TIZANIDINE 4 MG TABLET PO SCH (08:02)
[2020-07-04] MEDS: THIAMINE HCL 100 MG TABLET PO SCH (08:03)
[2020-07-04] MEDS: levoFLOXacin 500 MG TAB PO SCH (08:03)
[2020-07-04] MEDS: DULERA 200/5 (MOMETASONE/FORMOTEROL) INHALER IH SCH (08:04)
[2020-07-04 08:53] VITALS: O2SAT 93
[2020-07-04 12:15] VITALS: BP 116/62; TEMP 98.2
--- NOTE | 2020-07-04 21:56 | P.DS ---
Admission Date: 06/29/20 Discharge Date: 07/04/20 Disposition: ROUTINE DISCHARGE Discharge Condition: GOOD Reason for Admission: Respiratory failure from galaviz virus - Problems (1) Pneumonia due to COVID-19 virus Status: Acute (2) Acute hypoxemic respiratory failure due to severe acute respiratory syndrome coronavirus 2 (SARS-CoV-2) disease Status: Acute Brief History of Present Illness: RAMOS HAS BEEN DIAGNOSED WITH COVID INFECTION ON OF LAST MONTH. I GAVE HER DEXAMETHASONE 6 MG DAILY, XARELTO DAILY AND SUPPLEMENTS. SHE ENDS UP HERE WITH DYSPNEA AND COUGH. SHE IS HYPOXIC AND KEPT ON HF OXYGEN WITH OTHER MEDS IN ICU. SHE IS SEEN BY DR CARLISLE. Hospital Course: RAMOS HAS COVID PNEUMONIA AND REMAINED VERY HYPOXIC FOR A FEW DAYS. SHE IMPROVED WITH STEROIDS IV. ELIQUIS PO AND CRP IMPROVED WELL. SHE WAS ALSO GIVEN LEVAQUIN FOR PNEUMONIA. SHE MAY MOST LIKELY HAVE VIRAL PNEUMONIA. WBC WAS HIGH BUT ALSO AT HOME SHE WAS ON STEROIDS. Vital Signs/Physical Exam: Temp Pulse Resp BP Pulse Ox 98.2 F 65 17 116/62 89 L 07/04/20 12:00 07/04/20 12:00 07/04/20 12:00 07/04/20 12:00 07/04/20 12:00 Laboratory Data at Discharge: WBC 15.2 K/uL (4.3-10.9) H 07/04/20 04:44 Hgb 12.5 g/dL (12.0-15.0) 07/04/20 04:44 Hct 37.6 % (36.0-45.0) 07/04/20 04:44 Plt Count 297 K/uL (152-406) 07/04/20 04:44 PT 16.1 SECONDS (9.5-12.5) H 06/29/20 17:13 INR 1.37 06/29/20 17:13 APTT 34.5 SECONDS (24.3-36.9) 06/29/20 17:13 Sodium 139 mmol/L (136-145) 07/04/20 04:44 Potassium 4.2 mmol/L (3.5-5.1) 07/04/20 04:44 BUN 25 mg/dL (7-18) H 07/04/20 04:44 Creatinine 0.89 mg/dL (0.55-1.3) 07/04/20 04:44 Glucose 197 mg/dL (74-106) H 07/04/20 04:44 Total Bilirubin 0.8 mg/dL (0.2-1.0) 06/29/20 17:13 AST 55 U/L (15-37) H 06/29/20 17:13 ALT 69 U/L (12-78) 06/29/20 17:13 Alkaline Phosphatase 142 U/L (45-117) H 06/29/20 17:13 Troponin I < 0.02 ng/mL (0.0-0.045) 06/30/20 00:56 Lipase 201 U/L (73-393) 06/29/20 17:13 Home Medications: Escitalopram [Lexapro*] 20 mg PO DAILY 11/05/17 Pravastatin Sodium 40 mg PO DAILY 11/05/17 Spironolact/Hydrochlorothiazid [Spironolactone-Hctz 25-25 Tab] 1 tab PO DAILY 11/05/17 Verapamil HCl [Verapamil ER] 240 mg PO DAILY 11/05/17 Rivaroxaban [Xarelto] 20 mg PO DAILY #14 tab 07/04/20 levoFLOXacin [Levaquin*] 500 mg PO DAILY #5 tab 07/04/20 predniSONE [Prednisone*] 20 mg PO BID #21 tab 07/04/20 New Medications: levoFLOXacin [Levaquin*] 500 mg PO DAILY #5 tab predniSONE [Prednisone*] 20 mg PO BID #21 tab Rivaroxaban [Xarelto] 20 mg PO DAILY #14 tab
== END 2020-07-04 13:00 | disposition home or self-care (01) | DRG 177 ==
LOC: ER 16:48 → ERHOLD 20:12 → 3RD-ICU 21:42
PROVIDERS: ADMIT Internal Medicine; ATTEND Internal Medicine
DX: U07.1 COVID-19 (principal); J80 Acute respiratory distress syndrome; J12.89 Other viral pneumonia; I10 Essential (primary) hypertension; Z88.5 Allergy status to narcotic agent; Z90.49 Acquired absence of other specified parts of digestive tract; Z90.710 Acquired absence of both cervix and uterus; Z79.899 Other long term (current) drug therapy
CPT/HCPCS: 36415; 71045; 80048; 80076; 81003; 81015; 82728; 83605; 83615; 83690; 84145; 84484; 85025; 85379; 85610; 85730; 86140; 87040; 87804; 93005; 94002; 94003; 94640; 94760; 96361; 96365; 96366; 96375; 99285; J1100; J2920; J2930; J7040; J7512; J7606; U0003